=== PATIENT | female | born 1990 | race Caucasian/White ===

== ENCOUNTER 2018-12-10 07:18 | Day surgery (SDC) | payer BC ==
[~2018-12-10] VITALS: Ht 162.6 cm; Wt 88.9 kg
[~2018-12-10 07:18] MED LIST: LAMO200T2 PO; LISD60CA PO
[2018-12-10] MEDS ORDERED: LIDOCAINE 1% HCL (LOCAL ANESTH.) INJ 20ML MDV ONE (07:24)
[2018-12-10] MEDS ORDERED: BUPIVACAINE 0.25% INJ 50ML VIAL ONE (07:24)
[2018-12-10] MEDS ORDERED: NALOXONE HCL 0.4 MG/ML VIAL IV PRN (07:30)
[2018-12-10] MEDS ORDERED: HYDROmorphone HCL 2 MG/ML VL IV PRN ×2 (07:30)
[2018-12-10] MEDS ORDERED: ONDANSETRON HCL 4 MG/2 ML VIAL IV ONE (07:30)
[2018-12-10] MEDS ORDERED: MIDAZOLAM HCL 1MG/1ML-2 ML VIAL ONE (07:39)
[2018-12-10] MEDS ORDERED: ceFAZolin 1GM/50ML 50 ML IV ONE ×2 (07:39→07:41)
[2018-12-10] MEDS ORDERED: PROPOFOL 10 MG/ML 20 ML IV ONE (07:40)
[2018-12-10] MEDS ORDERED: METOCLOPRAMIDE HCL 5MG/ml INJ 2ml VIAL ONE (07:42)
[2018-12-10] MEDS ORDERED: LIDOCAINE HCL 2% TOP JELLY 5ML TOP ONE (07:43)
[2018-12-10] MEDS ORDERED: fentaNYL CITRATE 100 MCG/2 ML VL ONE (07:51)
[2018-12-10] MEDS ORDERED: LIDOCAINE 1% (LOCAL ANESTH.) PF 5ml SDV ONE (08:09)
[2018-12-10] MEDS ORDERED: KETOROLAC TROMETH 30 MG/ML 1ML VIAL ONE (08:09)
[2018-12-10 09:39] VITALS: BP 136/85
== END 2018-12-10 09:45 | disposition home or self-care (01) ==
LOC: SUR 07:18
PROVIDERS: ATTEND Orthopaedic Surgery Adult Reconstructive Orthopaedic Surgery
DX: G56.03 Carpal tunnel syndrome, bilateral upper limbs (principal); G56.21 Lesion of ulnar nerve, right upper limb; E66.9 Obesity, unspecified; J44.9 Chronic obstructive pulmonary disease, unspecified; F17.290 Nicotine dependence, other tobacco product, uncomplicated; F12.90 Cannabis use, unspecified, uncomplicated; Z68.34 Body mass index [BMI] 34.0-34.9, adult; Z88.2 Allergy status to sulfonamides; Z90.49 Acquired absence of other specified parts of digestive tract; Z79.899 Other long term (current) drug therapy
CPT/HCPCS: 29848; 64718; J0690; J1885; J2001; J2250; J2704; J2765; J3010; J3490

== ENCOUNTER 2019-02-12 14:30 | Emergency (ER) | payer BC ==
[~2019-02-12] VITALS: Ht 162.6 cm; Wt 89.8 kg
[2019-02-12 14:45] VITALS: BP 128/71
== END 2019-02-12 17:24 | disposition left against medical advice (07) ==
LOC: ER 14:30
DX: R53.1 Weakness (principal); Z88.2 Allergy status to sulfonamides; Z90.49 Acquired absence of other specified parts of digestive tract; Z53.29 Procedure and treatment not carried out because of patient's decision for other reasons